=== PATIENT | male | born 1990 | race Two or more races ===

== ENCOUNTER → 2020-03-03 | Emergency (ER) | payer MEDICAID ==
[~2020-03-03] VITALS: Ht 188 cm; Wt 108.9 kg
[2020-03-03 04:58] VITALS: BP 132/80
--- NOTE | 2020-03-03 05:27 | Emergency Room Report ---
History of Present Illness General Chief Complaint: Dyspnea/Respdistress Source: Patient Present Illness HPI Apparently patient c/o flank pain according to senior librarian. According to Registration, he stated he was having trouble breathing When he came back and was asked to give urine, the patient left and refused to be evaluated. . Allergies: Coded Allergies: No Known Allergies (Unverified , 03/03/20) COVID-19 Screening Contact w/high risk pt: No Experienced COVID-19 symptoms?: No COVID-19 Testing performed GRAVITY METER OPERATOR: No Nursing Documentation-[facility] Past Medical History: No History, Except For History Of Psychiatric Problem: Yes Physical Exam Vital Signs Date Time Temp Pulse Resp B/P (MAP) Pulse Ox O2 Delivery O2 Flow Rate FiO2 03/03/20 04:58 97.5 108 20 132/80 (97) 97 Room Air Medical Decision Making Diagnostic Impression: Primary Impression: Patient left without being seen Last Vital Signs Date Time Temp Pulse Resp B/P (MAP) Pulse Ox O2 Delivery O2 Flow Rate FiO2 03/03/20 04:58 97.5 108 20 132/80 (97) 97 Room Air Status: other Disposition: LEFT W/OUT BEING SEEN Condition: Unknown [facility]errals: [facility],REFERRING (PCP) Jayson Vazquez MD Mar 03, 2020 05:27
== END | disposition left against medical advice (07) ==
LOC: EMR 05:22
DX: R10.9 Unspecified abdominal pain (principal); Z53.21 Procedure and treatment not carried out due to patient leaving prior to being seen by health care provider